=== PATIENT | male | born 1965 | race Two or more races ===

== ENCOUNTER 2018-12-25 13:25 | Inpatient (IN) | payer OTHER ==
[~2018-12-25] VITALS: Ht 165.1 cm; Wt 83.5 kg
[2018-12-25] MEDS ORDERED: LOSARTAN POTASS50 MG PO (14:39)
== END 2019-01-02 16:02 | disposition home or self-care (01) | DRG 331 ==
LOC: SURG 12-31 05:45 → O/R 12-31 05:45 → SURH 12-31 09:01 → SURG 12-31 13:52
PROVIDERS: ADMIT Colon & Rectal Surgery
PROC: 07TC4ZZ Resection of Pelvis Lymphatic, Percutaneous Endoscopic Approach (ICD-10-PCS; 2018-12-31)
PROC: 0DJD8ZZ Inspection of Lower Intestinal Tract, Via Natural or Artificial Opening Endoscopic (ICD-10-PCS; 2018-12-31)
PROC: 0DTN4ZZ Resection of Sigmoid Colon, Percutaneous Endoscopic Approach (ICD-10-PCS; principal; 2018-12-31 18:45)
DX: C19 Malignant neoplasm of rectosigmoid junction (principal); I11.9 Hypertensive heart disease without heart failure

== ENCOUNTER 2018-12-30 08:10 | Day surgery (SDC) | payer OTHER ==
[~2018-12-30 08:10] MED LIST: LOSARTAN POTASS50 MG PO
== END 2018-12-30 17:00 | disposition home or self-care (01) ==
LOC: AMB-ENDOS 08:10
DX: K64.1 Second degree hemorrhoids (principal)

== ENCOUNTER 2019-02-09 11:09 | Outpatient (CLI) | payer OTHER | END 2019-02-09 11:29 | disposition home or self-care (01) | LOC: LAB 11:09 | DX: C20 Malignant neoplasm of rectum (principal); Z85.048 Personal history of other malignant neoplasm of rectum, rectosigmoid junction, and anus; K92.1 Melena ==

== ENCOUNTER 2019-02-11 05:53 | Day surgery (SDC) | payer OTHER | END 2019-02-11 10:30 | disposition home or self-care (01) | LOC: CIR.AMB 05:53 | DX: C20 Malignant neoplasm of rectum (principal) | CPT/HCPCS: 36561; C1751 ==

== ENCOUNTER 2019-06-13 21:20 | Inpatient (IN) | payer OTHER ==
[~2019-06-13] VITALS: Ht 165.1 cm; Wt 82.6 kg
--- NOTE | 2019-06-13 21:56 | NUR ---
SE RECIBE PTE ALERTA Y ORIENTADO X3,REFIERE TENER DOLOR ABDOMINAL EPIGASTRIO,REFIERE QUE TIENE FRANK EN LA VESICULA,PTE DE CANCER.
--- NOTE | 2019-06-14 00:07 | NUR ---
TX. OFRECIDO POR MR. PARSONS QUIEN ORIENTA AL PACIENTE SOBRE EL TX. EXTRAE MUESTRAS DE JOSE BAJO MEDIDAS ASEPTICAS ROTULA Y ENVIA AL LABORATORIO. CANALIZA Y ADMINISTRA MEDICAMENTOS CATHY ORDEN MEDICA.
--- NOTE | 2019-06-14 07:00 | NUR ---
PACIENTE ALERTA Y ORIENTADO EN CHANELLE LESLIE ESFERAS, PRESENTA BUEN PATRON RESPIRATORIO Y FELICE DE DOLOR. CANALIZADO EN BRAZO RT PATENTE Y FELICE DE DOLOR, RECIBIENDO RL A 100 ML/HR. PENDIENTE EVALUACION CON MEDICINA INTERNA POR PANCREATITIS AGUDA Y FRANK EN VESICULA.
[2019-06-19] MEDS ORDERED: LOSARTAN POTASS50 MG PO (13:35)
[2019-06-19] MEDS ORDERED: ACIDOPHILUS-PE1 EAC2 PO (13:35)
[2019-06-19] MEDS ORDERED: PROTONIX40 MG PO (13:35)
[2019-06-19] MEDS ORDERED: FLAGYL500MG PO (13:35)
== END 2019-06-19 15:08 | disposition home or self-care (01) | DRG 439 ==
LOC: ER 21:20 → SEC-K 06-14 12:31 → MEDJ 06-14 12:31
PROVIDERS: ADMIT Internal Medicine Geriatric Medicine
PROC: 8E0ZXY6 Isolation (ICD-10-PCS; principal; 2019-06-14)
DX: K85.80 Other acute pancreatitis without necrosis or infection (principal); C19 Malignant neoplasm of rectosigmoid junction; A04.72 Enterocolitis due to Clostridium difficile, not specified as recurrent; I11.9 Hypertensive heart disease without heart failure

== ENCOUNTER 2020-01-01 08:20 | Day surgery (SDC) | payer OTHER ==
[~2020-01-01 08:20] MED LIST changes: +ACIDOPHILUS-PE1 EAC2 PO; +FLAGYL500MG PO; +PROTONIX40 MG PO
== END 2020-01-01 16:45 | disposition home or self-care (01) ==
LOC: AMB-ENDOS 08:20
DX: K62.89 Other specified diseases of anus and rectum (principal); K57.30 Diverticulosis of large intestine without perforation or abscess without bleeding; K64.1 Second degree hemorrhoids